=== PATIENT | male | born 1950 | race African-American/Black ===

== ENCOUNTER 2019-05-01 08:26 | Inpatient (IN) | payer MEDICARE, MEDICAID ==
[~2019-05-01] VITALS: Ht 170.2 cm; Wt 102.1 kg
[2019-05-01 09:41] LABS: BASOPHILS % 1.3 % (0.0-2.0); EOSINOPHILS % 2.8 % (0.0-5.0); HEMATOCRIT. 34.5 % (42.0-52.0); HEMOGLOBIN. 11.5 g/dL (14.0-18.0); LYMPHOCYTES % 20.8 % (20.0-50.0); MEAN CORPUSCULAR HEMOGLOBIN 27.6 pg (28.0-32.0); MEAN CORPUSCULAR VOLUME 82.5 fL (80.0-94.0); MEAN PLATELET VOLUME 8.8 fl (7.4-10.4); MONOCYTES % 8.5 % (2.0-8.0); NEUTROPHILS % 66.6 % (40.0-76.0); PLATELET 229 x1000/uL (130-400); RED BLOOD CELL COUNT 4.18 mill/uL (4.7-6.1); RED CELL DISTRIBUTION WIDTH 16.1 % (11.6-14.6)
[2019-05-01 09:48] LABS: CHLORIDE 106 mEq/L (98-107); PROTHROMBIN TIME 10.3 sec (9.6-11.0)
[2019-05-01] MEDS ORDERED: ASPIRIN 325MG TABLET PO ONE (10:30)
[2019-05-01] MEDS ORDERED: HYDRALAZINE HCL 100MG TABLET PO ONE (10:30)
[2019-05-01] MEDS ORDERED: FUROSEMIDE 40MG/4ML VIAL IVP ONE (10:30)
[2019-05-01] MEDS ORDERED: DIPHENHYDRAMINE 50MG/ML VIAL IV PRN (12:45)
[2019-05-01] MEDS ORDERED: MAGNESIUM/ALUMINUM HYDROXIDE/SIMETHICONE 30ML UDC PO PRN (12:45)
[2019-05-01] MEDS ORDERED: ONDANSETRON HCL 4MG/2ML INJ IV PRN (12:45)
[2019-05-01] MEDS ORDERED: IPRATROPIUM/ALBUTEROL 0.5-3(2.5)MG/3ML NEB HHN PRN (12:45)
[2019-05-01] MEDS ORDERED: ACETAMINOPHEN 325MG TABLET PO PRN (12:45)
[2019-05-01 13:04] LABS: PHOSPHORUS 4.8 mg/dL (2.5-4.9)
[2019-05-01] MEDS: CLONIDINE 0.1MG TABLET PO PRN (17:41)
[2019-05-01 18:31] VITALS: BP 173/87
[2019-05-01 20:00] VITALS: BP 173/91
[2019-05-01] MEDS: AMLODIPINE 2.5MG TABLET PO SCH (20:13)
[2019-05-01 20:46] LABS: CREATINE KINASE MB FRACTION 1.1 ng/mL (0.5-3.6)
[2019-05-01] MEDS ORDERED: HYDR-4135 PO (20:59)
[2019-05-01] MEDS ORDERED: POTA-9 PO (20:59)
[2019-05-01] MEDS ORDERED: FURO80TA87 PO (20:59)
[2019-05-01] MEDS ORDERED: LEVO25TA2 PO (20:59)
[2019-05-01] MEDS ORDERED: NIFE90TA34 PO (20:59)
[2019-05-01] MEDS ORDERED: LISI40TA4 PO (20:59)
[2019-05-01] MEDS ORDERED: METO100T16 PO (20:59)
[2019-05-01] MEDS ORDERED: CRES10 PO (20:59)
[2019-05-01] MEDS ORDERED: LEVE500T19 PO (20:59)
[2019-05-01] MEDS ORDERED: ASPI-1158 PO (20:59)
[2019-05-01 22:00] VITALS: BP 163/86
[2019-05-01] MEDS: FUROSEMIDE 100MG/10ML VIAL IVP SCH (23:30)
[2019-05-01] MEDS: NITROGLYCERIN OINT 1GM/INCH UDPKT TD SCH (23:30)
[2019-05-02] VITALS (14 sets, daily range): BP systolic 148–188; BP diastolic 74–105
[2019-05-02 00:22] LABS: PHOSPHORUS 5.2 mg/dL (2.5-4.9)
[2019-05-02 00:27] LABS: CREATINE KINASE MB FRACTION 1.2 ng/mL (0.5-3.6)
[2019-05-02] MEDS: NITROGLYCERIN OINT 1GM/INCH UDPKT TD SCH (05:16)
[2019-05-02 07:20] LABS: BASOPHILS % 1.4 % (0.0-2.0); EOSINOPHILS % 2.6 % (0.0-5.0); HEMATOCRIT. 33.2 % (42.0-52.0); LYMPHOCYTES % 19.1 % (20.0-50.0); MEAN CORPUSCULAR HEMOGLOBIN 27.4 pg (28.0-32.0); MEAN CORPUSCULAR VOLUME 82.5 fL (80.0-94.0); MEAN PLATELET VOLUME 8.9 fl (7.4-10.4); NEUTROPHILS % 66.9 % (40.0-76.0); PLATELET 215 x1000/uL (130-400); RED BLOOD CELL COUNT 4.02 mill/uL (4.7-6.1); RED CELL DISTRIBUTION WIDTH 15.7 % (11.6-14.6)
[2019-05-02 07:29] LABS: CHLORIDE 107 mEq/L (98-107)
[2019-05-02 07:44] LABS: LDL CHOLESTEROL 60 mg/dL (5-100)
[2019-05-02 07:46] LABS: HDL CHOLESTEROL 50 mg/dL (40-59)
[2019-05-02] MEDS: FUROSEMIDE 100MG/10ML VIAL IVP SCH ×2 (09:11→17:52)
[2019-05-02] MEDS: AMLODIPINE 2.5MG TABLET PO SCH (09:11)
[2019-05-02] MEDS ORDERED: SODIUM BICARBONATE 4% (2.4MEQ) 5ML VIAL IV ONE (09:14)
[2019-05-02] MEDS ORDERED: LIDOCAINE HCL 1% 20ML VIAL (Pyxis) INJ ONE (09:15)
[2019-05-02] MEDS: CLONIDINE 0.1MG TABLET PO PRN ×2 (11:14→23:54)
[2019-05-02] MEDS: HYDRALAZINE HCL 25MG TABLET PO SCH ×2 (12:21→22:30)
[2019-05-02] MEDS ORDERED: HYDRALAZINE HCL 50MG TABLET PO SCH (21:00)
[2019-05-02] MEDS: AMLODIPINE 5MG TABLET PO SCH (22:29)
[2019-05-03] VITALS (18 sets, daily range): BP systolic 116–179; BP diastolic 73–98
[2019-05-03] MEDS: HYDRALAZINE HCL 25MG TABLET PO SCH ×3 (06:13→21:44)
[2019-05-03] MEDS: CLONIDINE 0.1MG TABLET PO PRN (06:14)
[2019-05-03 07:26] LABS: BASOPHILS % 1.3 % (0.0-2.0); HEMATOCRIT. 33.1 % (42.0-52.0); HEMOGLOBIN. 11.2 g/dL (14.0-18.0); LYMPHOCYTES % 19.3 % (20.0-50.0); MEAN CORPUSCULAR HEMOGLOBIN 27.8 pg (28.0-32.0); MEAN CORPUSCULAR VOLUME 82.1 fL (80.0-94.0); MEAN PLATELET VOLUME 8.9 fl (7.4-10.4); NEUTROPHILS % 66.4 % (40.0-76.0); PLATELET 178 x1000/uL (130-400); RED BLOOD CELL COUNT 4.04 mill/uL (4.7-6.1); RED CELL DISTRIBUTION WIDTH 16.2 % (11.6-14.6)
[2019-05-03 08:03] LABS: CHLORIDE 105 mEq/L (98-107)
[2019-05-03] MEDS: AMLODIPINE 5MG TABLET PO SCH (08:52)
[2019-05-03] MEDS: NIFEDIPINE XL 90MG TAB PO SCH (11:02)
[2019-05-03 14:08] LABS: PHOSPHORUS 4.8 mg/dL (2.5-4.9); TOTAL IRON BINDING CAPACITY 310 ug/dL (250-450)
[2019-05-03] MEDS: METOPROLOL TARTRATE 50MG TABLET PO SCH (21:44)
[2019-05-04] VITALS (14 sets, daily range): BP systolic 99–136; BP diastolic 59–78
[2019-05-04] MEDS: HYDRALAZINE HCL 25MG TABLET PO SCH ×3 (06:44→23:01)
[2019-05-04 07:10] LABS: BASOPHILS % 1.3 % (0.0-2.0); EOSINOPHILS % 3.2 % (0.0-5.0); HEMATOCRIT. 35.5 % (42.0-52.0); HEMOGLOBIN. 11.7 g/dL (14.0-18.0); LYMPHOCYTES % 18.3 % (20.0-50.0); MEAN CORPUSCULAR HEMOGLOBIN 27.3 pg (28.0-32.0); MEAN CORPUSCULAR VOLUME 82.7 fL (80.0-94.0); MEAN PLATELET VOLUME 8.9 fl (7.4-10.4); MONOCYTES % 8.6 % (2.0-8.0); NEUTROPHILS % 68.6 % (40.0-76.0); PLATELET 180 x1000/uL (130-400); RED BLOOD CELL COUNT 4.29 mill/uL (4.7-6.1); RED CELL DISTRIBUTION WIDTH 15.9 % (11.6-14.6)
[2019-05-04] MEDS: METOPROLOL TARTRATE 50MG TABLET PO SCH ×2 (08:37→21:54)
[2019-05-04] MEDS: NIFEDIPINE XL 90MG TAB PO SCH (08:38)
[2019-05-05] VITALS (14 sets, daily range): BP systolic 105–154; BP diastolic 46–84
[2019-05-05] MEDS: HYDRALAZINE HCL 25MG TABLET PO SCH ×3 (06:12→22:00)
[2019-05-05 06:41] LABS: BASOPHILS % 0.9 % (0.0-2.0); EOSINOPHILS % 3.4 % (0.0-5.0); HEMATOCRIT. 37.1 % (42.0-52.0); HEMOGLOBIN. 12.3 g/dL (14.0-18.0); LYMPHOCYTES % 19.2 % (20.0-50.0); MEAN CORPUSCULAR HEMOGLOBIN 27.4 pg (28.0-32.0); MEAN CORPUSCULAR VOLUME 82.6 fL (80.0-94.0); MEAN PLATELET VOLUME 9.1 fl (7.4-10.4); NEUTROPHILS % 65.5 % (40.0-76.0); PLATELET 159 x1000/uL (130-400); RED BLOOD CELL COUNT 4.49 mill/uL (4.7-6.1)
[2019-05-05] MEDS: METOPROLOL TARTRATE 50MG TABLET PO SCH ×2 (08:00→21:00)
[2019-05-05] MEDS: NIFEDIPINE XL 90MG TAB PO SCH (09:00)
[2019-05-05] MEDS ORDERED: HYDR-4134 PO (13:15)
[2019-05-05] MEDS ORDERED: METO-539 PO (13:15)
[2019-05-05] MEDS: SODIUM CHLORIDE 0.9% 1,000 ML IV SCH (16:32)
[2019-05-06] VITALS (7 sets, daily range): BP systolic 115–149; BP diastolic 67–82
[2019-05-06] MEDS: SODIUM CHLORIDE 0.9% 1,000 ML IV SCH (04:40)
[2019-05-06] MEDS: HYDRALAZINE HCL 25MG TABLET PO SCH (06:37)
[2019-05-06 06:59] LABS: BASOPHILS % 0.7 % (0.0-2.0); EOSINOPHILS % 1.3 % (0.0-5.0); HEMATOCRIT. 37.4 % (42.0-52.0); HEMOGLOBIN. 12.6 g/dL (14.0-18.0); LYMPHOCYTES % 17.7 % (20.0-50.0); MEAN CORPUSCULAR HEMOGLOBIN 27.9 pg (28.0-32.0); MEAN CORPUSCULAR VOLUME 82.7 fL (80.0-94.0); MEAN PLATELET VOLUME 9.4 fl (7.4-10.4); MONOCYTES % 10.5 % (2.0-8.0); NEUTROPHILS % 69.8 % (40.0-76.0); PLATELET 139 x1000/uL (130-400); RED BLOOD CELL COUNT 4.52 mill/uL (4.7-6.1)
[2019-05-06 08:17] LABS: CHLORIDE 99 mEq/L (98-107)
[2019-05-06] MEDS: NIFEDIPINE XL 90MG TAB PO SCH (08:26)
[2019-05-06] MEDS: METOPROLOL TARTRATE 50MG TABLET PO SCH (08:26)
[2019-05-06] MEDS ORDERED: SORBITOL 70% SOLN 30ML PO NR (10:30)
== END 2019-05-06 11:00 | disposition home health service (06) | DRG 194 ==
LOC: ER 08:26 → 3WST 11:30 → EDBEDREQ 11:41 → EDBEDREQTM 11:41 → CANRESERV 15:34 → ENRESERV 15:34 → EDBEDREQ 16:14 → EDBEDREQSVC 16:14 → ENRESERV 16:21 → 3WST 05-02 16:39
PROVIDERS: ADMIT Internal Medicine; ATTEND Internal Medicine
PROC: 02HV33Z Insertion of Infusion Device into Superior Vena Cava, Percutaneous Approach (ICD-10-PCS; principal; 2019-05-02)
PROC: B5181ZA Fluoroscopy of Superior Vena Cava using Low Osmolar Contrast, Guidance (ICD-10-PCS; 2019-05-02)
PROC: B548ZZA Ultrasonography of Superior Vena Cava, Guidance (ICD-10-PCS; 2019-05-02)
PROC: 5A1D70Z Performance of Urinary Filtration, Intermittent, Less than 6 Hours Per Day (ICD-10-PCS; 2019-05-02)
PROC: 5A1D70Z Performance of Urinary Filtration, Intermittent, Less than 6 Hours Per Day (ICD-10-PCS; 2019-05-03)
PROC: 5A1D70Z Performance of Urinary Filtration, Intermittent, Less than 6 Hours Per Day (ICD-10-PCS; 2019-05-05)
DX: I13.0 Hypertensive heart and chronic kidney disease with heart failure and stage 1 through stage 4 chronic kidney disease, or unspecified chronic kidney disease (principal); E66.01 Morbid (severe) obesity due to excess calories; N18.4 Chronic kidney disease, stage 4 (severe); E83.51 Hypocalcemia; I50.43 Acute on chronic combined systolic (congestive) and diastolic (congestive) heart failure; I49.3 Ventricular premature depolarization; D63.8 Anemia in other chronic diseases classified elsewhere; F17.210 Nicotine dependence, cigarettes, uncomplicated; Z85.528 Personal history of other malignant neoplasm of kidney; Z85.038 Personal history of other malignant neoplasm of large intestine; Z79.82 Long term (current) use of aspirin; Z71.3 Dietary counseling and surveillance; Z68.35 Body mass index [BMI] 35.0-35.9, adult; Z82.49 Family history of ischemic heart disease and other diseases of the circulatory system; Z86.73 Personal history of transient ischemic attack (TIA), and cerebral infarction without residual deficits; Z90.5 Acquired absence of kidney; Z79.899 Other long term (current) drug therapy; Z82.3 Family history of stroke
CPT/HCPCS: 36415; 71045; 76770; 76937; 77001; 80048; 80053; 80061; 82550; 82553; 82652; 82728; 83540; 83550; 83735; 83880; 83970; 84100; 84443; 84484; 85025; 93005; 93306; 93970; 96374; 97162; 99291; C1752; J1642; J1940; J3490; J7030

== ENCOUNTER 2019-08-19 18:08 | Emergency (ER) | payer MEDICARE ==
[~2019-08-19] VITALS: Ht 170.2 cm; Wt 81.0 kg
[~2019-08-19 18:08] MED LIST: ASPI-1158 PO; CRES10 PO; HYDR-4134 PO; LEVE500T19 PO; LEVO25TA2 PO; METO-539 PO; NIFE90TA60 PO
[2019-08-19] MEDS ORDERED: ACETAMINOPHEN 325MG TABLET PO ONE (23:15)
[2019-08-19 23:36] LABS: BASOPHILS % 0.3 % (0.0-2.0); EOSINOPHILS % 4.4 % (0.0-5.0); HEMATOCRIT. 34.6 % (42.0-52.0); HEMOGLOBIN. 11.9 g/dL (14.0-18.0); LYMPHOCYTES % 18.5 % (20.0-50.0); MEAN CORPUSCULAR HEMOGLOBIN 28.3 pg (28.0-32.0); MEAN CORPUSCULAR VOLUME 82.3 fL (80.0-94.0); MEAN PLATELET VOLUME 8.2 fl (7.4-10.4); MONOCYTES % 11.3 % (2.0-8.0); NEUTROPHILS % 65.5 % (40.0-76.0); PLATELET 266 x1000/uL (130-400); RED BLOOD CELL COUNT 4.21 mill/uL (4.7-6.1); RED CELL DISTRIBUTION WIDTH 16.2 % (11.6-14.6)
[2019-08-19 23:38] LABS: CHLORIDE 103 mEq/L (98-107)
[2019-08-20 03:47] VITALS: BP 160/80
== END 2019-08-20 04:04 | disposition home or self-care (01) ==
LOC: ER 18:08
DX: I95.9 Hypotension, unspecified (principal); R51 Headache; I13.2 Hypertensive heart and chronic kidney disease with heart failure and with stage 5 chronic kidney disease, or end stage renal disease; N18.6 End stage renal disease; I50.9 Heart failure, unspecified; G40.909 Epilepsy, unspecified, not intractable, without status epilepticus; Z86.73 Personal history of transient ischemic attack (TIA), and cerebral infarction without residual deficits; Z99.2 Dependence on renal dialysis; Z79.82 Long term (current) use of aspirin
CPT/HCPCS: 36415; 71045; 80053; 85025; 99285